=== PATIENT | female | born 2000 | race Caucasian/White ===

== ENCOUNTER 2020-10-30 23:57 | Emergency (ER) | payer SELFPAY ==
[~2020-10-30] VITALS: Ht 175.3 cm; Wt 65.9 kg
[2020-10-31 00:01] VITALS: Ht 175.3 cm; Wt 65.9 kg
[2020-10-31] MEDS ORDERED: PROBIOTIC250 MG PO (00:03)
[2020-10-31] MEDS ORDERED: CYMBALTA60 MG PO (00:03)
[2020-10-31 00:39] LABS: BASOPHILS 0.6 % (0-2); EOSINOPHILS 2.4 % (0-7); HEMATOCRIT 41.4 % (36.0-48.0); HEMOGLOBIN 14.1 g/dL (12-16); LYMPHOCYTES 40.1 % (15-50); MCH 29.5 pg (26.0-34.0); MCHC 33.9 g/dL (31.0-37.0); MEAN PLATELET VOLUME 7.3 fL (7.4-10.4); MONOCYTES 7.1 % (2-11); NEUTROPHILS 49.8 % (40-80); PLATELET COUNT 367 10x3/uL (130-400); RBC 4.76 10x6/uL (4.00-5.40); WBC 9.8 10x3/uL (4.8-10.8)
[2020-10-31 00:44] LABS: CALC OSMOLALITY 277 mosm/kg (275-300); CALCIUM 8.8 mg/dL (8.5-10.1); CHLORIDE - SERUM 102 mmol/L (98-107); CREATININE - SERUM 0.7 mg/dL (0.6-1.3); GLUCOSE 85 mg/dL (74-106); POTASSIUM - SERUM 3.8 mmol/L (3.5-5.1); SODIUM 140 mmol/L (136-145); UREA NITROGEN 12 mg/dL (7-18); eGFR NON AFRICAN AMERICAN > 90 mL/min (90-120)
[2020-10-31 00:47] LABS: BILIRUBIN NEGATIVE (NEGATIVE); HCG URINE NEGATIVE (NEGATIVE); KETONE NEGATIVE (NEGATIVE); NITRITE NEGATIVE (NEGATIVE); UROBILINOGEN NORMAL mg/dL (< 2)
[2020-10-31 00:50] LABS: ALBUMIN 4.5 g/dL (3.4-5.0); ALKALINE PHOSPHATASE 74 U/L (30-120); ALT (SGPT) 21 U/L (10-68); BILIRUBIN - TOTAL 0.37 mg/dL (0.2-1.3); LIPASE 81 U/L (73-393); PROTEIN - SERUM 7.9 g/dL (6.4-8.2)
[2020-10-31] MEDS ORDERED: DULCOLAX10 MG/SUPP RC (01:04)
[2020-10-31] MEDS ORDERED: COLACE100 MG PO (01:04)
[2020-10-31] MEDS ORDERED: MIRALAX17 GM PO (01:04)
[2020-10-31 01:26] VITALS: BP 120/85
== END 2020-10-31 01:21 | disposition home or self-care (01) ==
LOC: D.ER 23:57
PROVIDERS: Family Medicine
DX: K59.00 Constipation, unspecified (principal); R10.84 Generalized abdominal pain